=== PATIENT | male | born 1970 | race Caucasian/White ===

== ENCOUNTER 2017-03-20 11:38 | Emergency (ER) | payer SELFPAY ==
[~2017-03-20] VITALS: Ht 160 cm; Wt 78.0 kg
[2017-03-20] MEDS ORDERED: ONDANSETRON 2MG/ML, 2ML IVPush ONE (12:00)
[2017-03-20] MEDS ORDERED: SODIUM CHLORIDE 0.9% 1,000ML IVBOLUS ONE (12:00)
[2017-03-20] MEDS ORDERED: MORPHINE SULFATE 4 MG/ML, 1ML IVPush PRN (12:00)
[2017-03-20] MEDS ORDERED: ASPIRIN 81 MG TABLET CHEW PO ONE (12:00)
[2017-03-20] MEDS ORDERED: NITROGLYCERIN SINGLE TAB 0.4 MG SL PRN (12:00)
[2017-03-20] MEDS ORDERED: LORazepam 2 MG/ML, 1ML IVPush ONE (12:00)
[2017-03-20] MEDS ORDERED: ASPIRIN 81 MG TABLET CHEW ONE (12:01)
[2017-03-20] MEDS ORDERED: NITROGLYCERIN OINT 2%, 1GM TP ONE (12:01)
[2017-03-20] MEDS ORDERED: NITROGLYCERIN SINGLE TAB 0.4 MG SL ONE (12:16)
[2017-03-20 12:22] LABS: HEMOGLOBIN 16.3 g/dL (13.7-18.0); WHITE BLOOD COUNT 12.4 x10^3/uL (3.4-10)
[2017-03-20] MEDS ORDERED: LORazepam 2 MG/ML, 1ML ONE (12:33)
[2017-03-20 12:34] LABS: ASPARTATE AMINO TRANSFERASE 17 U/L (15-37); BLOOD UREA NITROGEN 20 mg/dL (7-18)
[2017-03-20 12:43] LABS: IS PT STATUS REG ER OR PRE ER? YES
[2017-03-20 14:13] VITALS: BP 111/66
== END 2017-03-20 15:03 | disposition left against medical advice (07) ==
LOC: ED 12:33 → UNDOADMIN 13:28 → EDIP 13:28 → ED 15:03
DX: I20.1 Angina pectoris with documented spasm (principal); F41.9 Anxiety disorder, unspecified
CPT/HCPCS: 36415; 71010; 80053; 84484; 85025; 85610; 93005; 96361; 96374; 99291; J2060; J7030